=== PATIENT | female | born 1935 | race Caucasian/White ===

== ENCOUNTER 2018-05-27 11:11 | Emergency (ER) | payer MEDICARE, OTHER ==
[~2018-05-27] VITALS: Ht 160 cm; Wt 73.9 kg
[~2018-05-27 11:11] MED LIST: ACETAMINOPHEN500 M1 PO; ALLEGRA60 MG PO; DESOXIMETASONE15 G2 TOP; ESTRADIOL1 MG PO; FUROSEMIDE20 MG PO; LEVOTHYROXINE112 MCG PO; NORCO 5-325 TA1 EACH PO; PRECOSE25 MG PO; SIMVASTATIN10 MG PO
== END 2018-05-27 13:28 | disposition home or self-care (01) ==
LOC: ED 11:11
PROC: 0YQHXZZ Repair Right Lower Leg, External Approach (ICD-10-PCS; principal; 2018-05-27)
DX: S81.811A Laceration without foreign body, right lower leg, initial encounter (principal); J45.909 Unspecified asthma, uncomplicated; G62.9 Polyneuropathy, unspecified; Z79.01 Long term (current) use of anticoagulants; Z88.6 Allergy status to analgesic agent; Z88.8 Allergy status to other drugs, medicaments and biological substances; Z79.899 Other long term (current) drug therapy; R20.3 Hyperesthesia; W22.8XXA Striking against or struck by other objects, initial encounter
CPT/HCPCS: 96374; 99283-25; J3010

== ENCOUNTER 2018-07-18 07:42 | Observation (INO) | payer MEDICARE, OTHER ==
[~2018-07-18] VITALS: Ht 160 cm; Wt 75.7 kg
--- NOTE | 2018-07-18 13:57 | EKG ---
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 rate has increased BY [address] now depressed in Anterior leads T wave inversion now evident in Inferior leads T wave inversion more evident in Lateral leads Confirmed by IWONA PARTIDA MD ([id number]) on 07/18/2018 1:57:21 PM Electronically Signed By: IWONA PARTIDA MD 07/18/18 1357 PATIENT NAME: KERRY LIU Electrocardiogram DATE OF : 37 PHYSICIAN: IWONA PARTIDA MD REPORT #: [id number] REPORT IS CONFIDENTIAL AND NOT TO BE RELEASED WITHOUT AUTHORIZATION
--- NOTE | 2018-07-18 14:03 | NUR ---
PT GOT TO UNIT AT APROXIMATLY 1305 FROM ER. PT ABLE TO TRANSFER WITH STANDBY ASSIST TO BEDSIDE COMMODE. PT HAD SMALL BM AND WAS ABLE TO VOID. PT TRANSFERED TO THE BED WITH STANDBY ASSIST. PT DENIES PAIN, NAUSEA, AND SOB AT THIS TIME. PT ALERT AND ORIENTED X4 AT THIS TIME, COOPERATIVE AND POLITE. PT ABLE TO EAT ONE HALF OF SANDWICH FOR LUNCH AND FLOR PO FLUIDS WELL. SPOUSE AT THE BEDSIDE. IV SITE INTACT, NO REDNESS OR SWELLING, PT REPORTS SLIGHT STINGING WITH FLUSH, NO INFILTRATION NOTED.
[2018-07-18] MEDS ORDERED: ACID REDUCER150 MG PO (14:08)
[2018-07-18] MEDS ORDERED: MIRALAX17 GM PO (14:09)
[2018-07-18] MEDS ORDERED: ALLEGRA ALLERGY60 MG PO (14:09)
[2018-07-18] MEDS ORDERED: TYLENOL EXTRA500 MG PO (14:10)
--- NOTE | 2018-07-18 14:12 | NUR ---
Medications reconciled using pharmacy records and patient list/interview
--- NOTE | 2018-07-18 15:05 | NUR ---
CHECKED IN WITH PATIENT TO PERFORM ORTHOSTATICS. WHEN TAKING PRESSURES A LAYING FLAT WAS TAKEN AND BLOOD PRESSURE WAS 135/52. I THEN HAD THE PATIENT SIT UP IN BED AND WAIT 1 MINUTE BEFORE BLOOD PRESSURE WAS TAKEN AGAIN, AT THAT TIME BLOOD PRESSURE WAS 130/97. I THEN HAD THE PATIENT STAND AND HER BLOOD PRESSURE AT 1 MINUTE WAS 116/57 AND 115/56. BEFORE THE PATIENT HAD BEEN STANDING FOR A FULL MINUTE PATIENT STARTED TO COMPLAIN OF DIZZYNESS. PATIENT WAS OFFERED TO SIT DOWN BUT SHE DECIDED TO KEEP STANDING AND CHOSE TO HOLD ON TO THE RAIL. PATIENT DID NOT APPEAR TO HAVE ANY SIGNS OF WEAKNESS. SHE WAS ABLE TO REMAIN STANDING UPRIGHT WITH NO SWAYING. PATIENT HAD NO QUESTIONS AFTER EVERYTHING WAS COMPLETED.
--- NOTE | 2018-07-18 17:08 | NUR ---
CHECKED IN WITH PATIENT FOR 1600 EVALUATION. PATIENT WAS LAYING DOWN IN THE DARK AND APPEARS TO BE COMFORTABLE. PATIENT STATED THAT FOR THE FIRST TIME IN YEARS SHE DOES NOT HAVE A HEADACHE. PATIENT HAS NO COMPLAINTS OF PAIN. DURING EXAM PATIENT WAS POSITIVE. PATIENT HAD NO OTHER COMPLAINTS AT THIS TIME.
--- NOTE | 2018-07-18 20:10 | NUR ---
SHIFT REPORT WAS RECEIVED FROM CARLOS FALLON AND SN NELIA. PT IS CURRENTLY SITTING UP IN BED. ALERT/ORIENTED, DENIES PAIN. LUNGS CLEAR, RA. HR REGULAR, NETTA WITH RATE 55-59. BOWEL TONES ACTIVE, DENIES NAUSEA, PT REQUESTS TO HAVE MIRALAX IN THE MORNING PER HOME ROUTINE, VERIFIED WITH DR. PARTIDA AND ORDERED. SKIN APPEARS GROSSLY INTACT, SOME SCARRING/DISCOLORATION NOTED TO LOWER LEGS, NO EDEMA NOTED. IV PATENT, INFUSING WNL. RECEIVED CALL FROM DR. PARTIDA THAT RATE WAS INCREASED AND WILL ADMINISTER 2 MORE BAGS OF FLUID FOR +ORTHOSTATIC VS. PRINTED MATERIAL PROVIDED TO PT ABOUT A.FIB AND ELIQUIS. PT DENIES REQUESTS AT THIS TIME, CALL LIGHT IS WITHIN REACH.
--- NOTE | 2018-07-18 21:02 | NUR ---
PT UP TO BSC WITH SBA, VOIDED 250ML AND HAD SMALL SOFT BM. PT RETURNED TO BED. DENIES ANY DIZZINESS. NO FURTHER REQUESTS AT THIS TIME, CALL LIGHT WITHIN REACH.
--- NOTE | 2018-07-18 23:56 | NUR ---
ASSESSMENT COMPLETED. PT REPORTS 9/10 HEADACHE AND NECK PAIN. 650MG PO TYLENOL ADMINISTERED AND HEAT PACK PROVIDED. PT ALSO REPORTS INTERMITTENT TINGLING IN HER RIGHT HAND AND FINGERS, SHE STATES THIS HAPPENS IN THE NIGHTS AT TIMES AND USUALLY GOES AWAY WHEN SHE MOVES HER FINGERS/HANDS. PT HAS NOT YET BEEN ABLE TO SLEEP TONIGHT. IV REMAINS INTACT, INFUSING WNL. NO OTHER CHANGES FROM PREVIOUS ASSESSMENT. CALL LIGHT WITHIN REACH.
--- NOTE | 2018-07-19 02:36 | NUR ---
PT APPEARS TO BE SLEEPING AT THIS TIME. RESPIRATIONS ARE EVEN AND UNLABORED, RR:16, SPO2:96% ON RA, HR:51. WILL ALLOW FOR REST AND CONTINUE TO MONITOR.
--- NOTE | 2018-07-19 04:00 | NUR ---
PT CONTINUES TO SLEEP. DOES NOT APPEAR TO BE IN ANY DISTRESS. RESPIRATIONS EVEN AND UNLABORED, RR:17, SPO2:96% ON RA. REMAINS SINUS NETTA WITH HR:51. IVF INFUSING WNL. WILL ALLOW FOR REST AND CONTINUE TO MONITOR.
--- NOTE | 2018-07-19 06:20 | NUR ---
PT UP TO BSC WITH OTHER RN WHILE THIS RN WAS OFF THE FLOOR. BP NOT OBTAINED WHILE PT WAS LYING DOWN, BUT WHILE SITTING BP: 126/84 AND AFTER STANDING FOR 3 MINUTES BP: 129/74. PT DENIES ANY DIZZINESS AND APPEARS STEADY ON FEET. VOIDED 450ML. PT NOW STANDING AT SINK TO BRUSH TEETH AND WASH FACE WHILE THIS RN REMAINS IN ROOM. IV SITE INTACT, IVF INFUSING WNL.
--- NOTE | 2018-07-19 06:30 | NUR ---
PT MEDICATED WITH 650MG PO TYLENOL FOR 7/10 NECK AND HEADACHE PAIN.
--- NOTE | 2018-07-19 06:48 | NUR ---
PT BACK IN BED AT THIS TIME, COFFEE PROVIDED AND BREAKFAST ORDERED.
--- NOTE | 2018-07-19 07:30 | NUR ---
PT SHIFT REPORT RECEIVED FROM COMPOUND FILLER RN. PT RESTING IN BED AT THIS TIME. PT CALLS APPROPRIATELY. WILL CONTINUE TO CLOSELY MONITOR.
--- NOTE | 2018-07-19 08:15 | NUR ---
AURICULAR DETOXIFICATION SPECIALIST IN TO COMPLETE ECHO THIS AM.
--- NOTE | 2018-07-19 08:45 | NUR ---
PT UP TO THE BATHROOM WITH THIS RN. PT DENIES DIZZINESS. PT TOLERATED WELL. AM CARES COMPLETED. PT APPLYING MAKEUP AT THIS TIME. PT BACK TO BED WITH NO ISSUES. BREAKFAST FINISHED. ASSESSMENT COMPLETED. BREATH SOUNDS CLEAR. BOWEL TONES ACTIVE. PT DENIES DIZZINESS AND SOB. WILL CONTINUE TO CLOSELY MONITOR.
--- NOTE | 2018-07-19 09:10 | NUR ---
ORTHOSTATIC VITALS COMPLETED. PT HAD DIZZINESS INITIALLY WITH GETTING UP RIGHT AWAY. PT SAT AND DANGLED HER LEGS FOR A FEW MINUTES AND THEN DENIED DIZZINESS AFTER STANDING. VITALS DOCUMENTED. NO OTHER ISSUES AT THIS TIME. PT BACK TO BED WITH CALL LIGHT IN HAND. WILL CONTINUE TO CLOSELY MONITOR.
--- NOTE | 2018-07-19 09:41 | NUR ---
PT UP AND WALKED THE UNIT X2 WITH THIS RN. PT DENIES DIZZINESS, BUT STATES "I JUST FEEL A BIT OFF, BUT WAY BETTER THAN YESTERDAY, I COULD HAVE NEVER DONE THIS YESTERDAY". PT BACK TO BED VITALS COMPLETED. PT IN TO BATHROOM WITH NO ISSUES. WILL CONTINUE TO CLOSELY MONITOR.
[2018-07-19] MEDS ORDERED: ELIQUIS5 MG PO (09:59)
[2018-07-19] MEDS ORDERED: METOPROLOL SUCC25 MG PO (10:00)
--- NOTE | 2018-07-19 10:30 | NUR ---
PT WILL BE DISCHARGED PER DR SANTOYO. PT IS AGREEABLE TO PLAN. WILL CALL PHARMACY AND HAVE THEM COME DO EDUCATION. [facility]OUND CALLED AND WILL BE AVAILABLE AROUND 1130. WILL CONTINUE TO CLOSELY MONITOR.
--- NOTE | 2018-07-19 11:18 | NUR ---
PT GETTING ULTRASOUND AT THIS TIME. PTS STATED "I WILL BE THERE AROUND NOON". PT DENIES ANY OTHER NEEDS AT THIS TIME. WILL CONTINUE TO CLOSELY MONITOR.
--- NOTE | 2018-07-19 11:45 | NUR ---
PT DISCHARGE INSTRUCTIONS GIVEN AND PLACED IN PACKET TO TAKE HOME. PT EDUCATED TO FOLLOW-UP WITH HER MD ON THURSDAY AND TO CALL OR RETURN TO THE ED IF WORSENING OF SYMPTOMS. PRESCRIPTIONS SENT TO [facility]. MEDICATIONS REVIEWED WITH THIS RN AND PHARMACIST. ALL BELONGINGS GATHERED. PT HAS HER CELLPHONE AND GLASSES IN HER POCKET. AWAITING PATIENTS TO GET HERE FOR A RIDE HOME.
--- NOTE | 2018-07-19 12:20 | NUR ---
PT BROUGHT TO FRONT AND ASSISTED INTO HER CAR VIA WHEELCHAIR. PT TOLERATED WELL. ALL EDUCATIONS AND DISCHARGE INSTRUCTIONS AND BELONINGS GIVEN TO PATIENTS . IV DCD PRIOR TO DISCHARGE. PT DENIES FURTHER NEEDS OR QUESTIONS AT THIS TIME.
--- NOTE | 2018-07-20 19:57 | EKG ---
[facility] [address] [place] [address] Signed Sinus rhythm Incomplete right bundle branch block Minimal voltage criteria for LVH, may be normal variant Septal infarct (cited on or before 29-SEP-2016) Abnormal ECG When compared with ECG of 18-JUL-2018 07:48, (Unconfirmed) Sinus rhythm has replaced Atrial fibrillation Vent. rate has decreased BY 62 BPM T wave inversion no longer evident in Inferior leads Confirmed by IWONA PARTIDA MD ([id number]) on 07/20/2018 7:57:39 PM Electronically Signed By: IWONA PARTIDA MD 07/20/181956 PATIENT NAME: KERRY LIU Electrocardiogram DATE OF : 37 PHYSICIAN: IWONA PARTIDA MD REPORT #: [id number] REPORT IS CONFIDENTIAL AND NOT TO BE RELEASED WITHOUT AUTHORIZATION
== END 2018-07-19 12:20 | disposition home or self-care (01) ==
LOC: ED 07:42 → CCU 07:44
PROVIDERS: ADMIT Internal Medicine
DX: I48.0 Paroxysmal atrial fibrillation (principal); I47.1 Supraventricular tachycardia; G62.9 Polyneuropathy, unspecified; E78.5 Hyperlipidemia, unspecified; I87.8 Other specified disorders of veins; E03.9 Hypothyroidism, unspecified; I95.1 Orthostatic hypotension; G83.21 Monoplegia of upper limb affecting right dominant side; Z79.890 Hormone replacement therapy; Z79.899 Other long term (current) drug therapy; Z88.8 Allergy status to other drugs, medicaments and biological substances; Z91.040 Latex allergy status
CPT/HCPCS: 70450; 71046; 80053; 80061; 81001; 83735; 83880; 84443; 84484; 85025; 93005; 93010; 93306; 93880; 96361; 96374; 99291; G0378; J7120

== ENCOUNTER 2018-08-03 09:14 | Emergency (ER) | payer MEDICARE, OTHER ==
[~2018-08-03] VITALS: Ht 160 cm; Wt 75.8 kg
[~2018-08-03 09:14] MED LIST changes: +ACID REDUCER150 MG PO; +ALLEGRA ALLERGY60 MG PO; +ELIQUIS5 MG PO; +METOPROLOL SUCC25 MG PO; +MIRALAX17 GM PO; +TYLENOL EXTRA500 MG PO
--- OUTSIDE RECORDS SUMMARY | 2018-08-03 09:16 | XMS ---
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 Thuan VISIT COUNT (12 MO.) 3 ZINA Garcia TOTAL 3 NOTE: Visits indicate total known visits. ED/UCC VISIT TRACKING (12 MO.) 08/03/2018 09:14 [facility] [place] TYPE: Emergency COMPLAINT: - WEAKNESS 07/18/2018 07:43 [facility] [place] TYPE: Emergency COMPLAINT: - CHEST PAIN/SOB 05/27/2018 11:11 [facility] [place] TYPE: Emergency COMPLAINT: - LEG LAC DIAGNOSES: - Polyneuropathy, unspecified - Hyperesthesia - Allergy status to other drugs, medicaments and biological substances status - Striking against or struck by other objects, initial encounter - Other nursing home (current) drug therapy - Unspecified asthma, uncomplicated - jail (current) use of anticoagulants - Laceration without foreign body, right lower leg, initial encounter - Allergy status to analgesic agent status INPATIENT VISIT TRACKING (12 MO.) 07/18/2018 07:44 [facility] [place] TYPE: Critical Care COMPLAINT: - A-FIB DIAGNOSES: - Latex allergy status - Polyneuropathy, unspecified - 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
--- NOTE | 2018-08-03 13:40 | EKG ---
[facility] [address] [place] [address] Signed Sinus bradycardia with premature atrial complexes Incomplete right bundle branch block Septal infarct (cited on or before 29-SEP-2016) Abnormal ECG When compared with ECG of 18-JUL-2018 08:16, premature atrial complexes are now present Confirmed by GUME STRANGE MD ([id number]) on 08/03/2018 1:39:58 PM Electronically Signed By: GUME STRANGE MD 08/03/18 1340 PATIENT NAME: KERRY LIU SUZANNE Electrocardiogram DATE OF : 37 PHYSICIAN: GUME STRANGE MD REPORT #: [id number] REPORT IS CONFIDENTIAL AND NOT TO BE RELEASED WITHOUT AUTHORIZATION
== END 2018-08-03 11:00 | disposition home or self-care (01) ==
LOC: ED 09:14
DX: R55 Syncope and collapse (principal); R00.1 Bradycardia, unspecified; G62.9 Polyneuropathy, unspecified; E78.00 Pure hypercholesterolemia, unspecified; Z90.710 Acquired absence of both cervix and uterus; Z88.6 Allergy status to analgesic agent; Z88.8 Allergy status to other drugs, medicaments and biological substances; Z91.040 Latex allergy status; Z79.899 Other long term (current) drug therapy
CPT/HCPCS: 71045; 80053; 84484; 85025; 93005; 93010; 99284-25

== ENCOUNTER 2019-02-09 18:39 | Inpatient (IN) | payer MEDICARE, OTHER ==
[~2019-02-09] VITALS: Ht 160 cm; Wt 77.1 kg
[~2019-02-09 18:39] MED LIST changes: +ALLEGRA ALLERG180 MG PO; -ALLEGRA ALLERGY60 MG PO; +ASPIR-LOW81 MG PO; +ATORVASTATIN CA20 MG PO; +DILTIAZEM HCL60 MG PO; +LEVOTHYROXINE125 MCG PO; +PACERONE400 MG PO; +POTASSIUM CHLO10 ME1 PO; +WARFARIN SODIUM5 MG PO
--- NOTE | 2019-02-09 21:55 | NUR ---
PT ARRIVED IN CCU AT 2116. BP SO FAR WDL, HR IN THE 40'S. OTHER V/S ARE WDL WELL. BILATERAL ANKLE/FOOT EDEMA +1 NOTED, PT HAS NEUROPHATHY IN BOTH FEET WELL. PEDIS PULSES +1, RADIAL PULSES +2, PT IS AAOX4, PT DID WELL UP TO BEDSIDE COMMODE NOT COMPLAINING OF DIZZINESS. LOBES ARE CLEAR. WILL CONTINUE TO MONITOR.
--- NOTE | 2019-02-09 22:56 | NUR ---
BNP IS 189. MD JEFFERS WAS CALLED AND PT NOW IS SALINE LOCKED. ALSO, SINCE ARRIVAL IN CCU PT HAS BEEN SINUS NETTA, NO JUNCTIONAL RHYTHM NOTED THUS FAR. HR AT THIS TIME IN THE 50'S FOR THE MOST PART.
--- NOTE | 2019-02-09 23:57 | NUR ---
PT IS SLEEPING AT THIS TIME. HR IN THE 50'S AT THIS TIME. OTHER V/S ARE WDL.
--- NOTE | 2019-02-10 01:30 | NUR ---
AT THIS TIME HR IS IN THE 50'S OVERALL. OTHER V/S ARE WDL, ALL LOBES ARE CLEAR, PT DENIES SOB, CHEST PAIN OR ANY OTHER PAIN. PT ALSO DENIES DIZZINESS. PERIPHERAL BILATERAL ANKLE/FOOT EDEMA IS UNCHANGED. NO NEW CONCERNS NOTED AT THIS TIME.
--- NOTE | 2019-02-10 03:30 | NUR ---
PT IS SLEEPING. NO NEW CONCERNS NOTED. HR UPPER 40'S AT THIS TIME. OTHER V/S WDL.
--- NOTE | 2019-02-10 05:30 | NUR ---
THIRD ASSESSMENT IS UNCHANGED FROM PREVIOUS ASSESSMENTS. HR AT THIS TIME IN THE UPPER 40'S. OTHER V/S ARE WDL. PT DENIES PAIN OF ANY KIND AT THIS TIME. NO NEW CONCERNS NOTED.
--- NOTE | 2019-02-10 07:30 | NUR ---
PATIENT SHIFT REPORT RECIEVED FROM DENTAL TECHNICIAN RN. PATIENT IS SITTING ON EDGE OF BED WITH FAMILY AT BEDSIDE. PATIENT DENIES ANY NEEDS AT THIS TIME. PATIENT IS CURRENTLY SALINE LOCKED PER REPORT. CALL LIGHT IN REACH. WILL CONTINUE TO CLOSELY MONITOR.
--- NOTE | 2019-02-10 08:30 | NUR ---
IN TO DO INITIAL CASE MANAGEMENT ASSESSMENT. PT ALERT AND ORIENTED. DENIES ANY NEEDS AT HOME
--- NOTE | 2019-02-10 08:36 | NUR ---
PATIENT RESTING IN BED. BREATH SOUNDS CLEAR. BOWEL TONES ACTIVE. PATIENT STATES "CAN I GO HOME THIS MORNING". EDUCATED PATIENT MD WOULD BE IN THIS MORNING/AFTERNOON AND WE CAN DISCUSS THIS AT THAT TIME. NO CURENT ORRDERES FOR DISCHARGE. PATIENT STATES "I FEEL WAY BETTER THAN BEFORE, WHEN I WAS ABOUT TO PASS OUT". WILL CONTINUE TO CLOSELY MONITOR.
--- NOTE | 2019-02-10 10:00 | NUR ---
PATIENT IS GOING TO STAY ANOTHER NIGHT AND RESTART MEDICATIONS AND MONITOR HER THROUGHOUT THE NIGHT. PATIENT IS AGREEABLE TO PLAN OF CARE. PATIENT ASSISTED UP TO THE BATHROOM. PATIENT DENIED DIZZINESS AND TOELRATED WELL. AM CARES COMPLETED. WILL CONTINUE TO CLOSELY MONTIOR.
--- NOTE | 2019-02-10 12:27 | NUR ---
PATIENT SITING ON THE EDGE OF HER BED EATING LUNCH. MEDICATIONS ADMINISTERED. PATIENT IS AGREEABLE TO PLAN OF CARE. PATIENT HAS BEEN UP TO THE BATHROOM AND TOLERATED WELL. PATIENT CALLS APPROPRIATELY. LUNCH AT BEDSIDE. WILL CONTINIUE TO CLOSELY MONITOR.
--- NOTE | 2019-02-10 13:35 | NUR ---
DCD IV IN PATIENT IV D/T IT IRITATING PATIENT. OTHER IV SITE IN PATIENTS HAND WORKS WELL. PATIENT AT THE BEDSIDE. NO QUESTIONS AT THIS TIME. WILL CONTINUE TO CLOSELY MONITOR.
--- NOTE | 2019-02-10 14:57 | NUR ---
PT SITTING UP IN BED-ALERT AND ORIENTED. PT SEEMS TO BE DEALING APPROPRIATELY WITH RECENT DEVELOPMENTS WITH HER HEALTH. HER SEEMS TO BE STRUGGLING MORE. PT REQUESTED PRAYER, WILL FOLLOW NEEDED
--- NOTE | 2019-02-10 15:45 | NUR ---
WENT IN TO CHECK ON PATIENT D/T PATIENTS HR 48. PATIENTS HR HAS BEEN 50-60'S THIS AFTERNOON. PATIENT IS SITTING ON THE EDGE OF THE BED AND STATED, "I CAN FEEL IT, IT FEELS DIFFERENT, I DONT FEEL GOOD."PATIENTS HR THEN DROPPED TO THE 30'S. THIS RN ASSISTED PATIENT TO [place] POSITION AND CALLED FOR HELP. MD CALLED AND AT THE BEDSIDE. PATIENTS HR NOTED TO BE IN A DIFFERENT RHYTHM DURING EPISODE. PATIENT PALE AND CLAMMY. PATIENT FEELING BETTER BY THE TIME MD JEFFERS ARRIVED WITHIN A FEW MINUTES. GAVE PRN ZOFRAN FOR NAUSEA. PATIENT ALSO COMPLAINED OF A HEADACHE AFTER INCIDENT. MD JEFFERS CONSULTING WITH IP TECHNOLOGY TRANSACTIONS ATTORNEY.
--- NOTE | 2019-02-10 16:30 | NUR ---
MD JEFFERS CONSULTED WITH PAINT FACTORY WORKER AND PATIENT WILL BE TANSFERING TO [facility] FOR FURTHER CARE AND TREATMENT. PLACED PACER PADS PER JUSTIN . PATIENT IS UPDATED ON PLAN OF CARE AND IS AGREEABLE TO BEING TRANSFERED. PATIENT CALLED HER TO UPDATE.
--- NOTE | 2019-02-10 16:33 | NUR ---
BED CONFIRMATION AT [facility]. PT PLACED ON PACER PADS. [facility] CALLED FOR TRANSPORT.
[2019-02-10] MEDS ORDERED: WARFARIN SODIUM5 MG PO (17:06)
--- NOTE | 2019-02-10 17:19 | NUR ---
MED REC COMPLETE
--- NOTE | 2019-02-10 17:30 | NUR ---
EMS STAFF ARRIVED TO TRANSPORT PATIENT TO [facility]. REPORT GIVEN TO STAFF. UPDATED ON MEDICATIONS ALLERGIES, HX, AND TREATMENT SINCE ARRIVAL. PATIENT IS ALERT AND ORIENTED. ALL BELONGINGS GATHERED AND SENT WITH PATIENT. PATIENT HAS PACER PADS IN PLACE. PATIENTS HR IS 50'S AT THIS TIME. PATIENT DENIES ANY NAUSEA, LIGHTHEADEDNESS, OR PALPITATIONS. WILL CALL AND GIVE REPORT TO [facility] RN.
--- NOTE | 2019-02-10 18:26 | NUR ---
PATIENT REPORT CALLED TO HAILEY GONZALEZ AT [facility]. UPDATED ON CURRENT HOSPTIALIZATION AND EVENTS LEADING UP TO HOSPITALIZATION. PATIENTS HR UPON TRANSFER WAS 52, BP- 144/72, AND RR 18. EXTERNAL PACER PADS IN PLACE FOR TRANSFER, STAFF DID NOT HAVE TO PACE PATIENT MARIANOIEL SHE WAS HERE. PATIENT DENIES SYMPTOMS OF NAUSEA AND DIZINESS UPON TRANSFER. ALL BELONGINGS SENT WITH EMS STAFF.
--- NOTE | 2019-02-10 21:09 | EKG ---
[facility] [address] [place], [place] [address] Signed Atrial fibrillation with slow ventricular response Anterior infarct , age undetermined Abnormal ECG No previous ECGs available Confirmed by TRINH JEFFERS DO ([id number]) on 02/10/2019 9:09:25 PM Electronically Signed By: TRINH JEFFERS DO [birth year] PATIENT NAME: KERRY LIU Electrocardiogram DATE OF : 37 PHYSICIAN: TRINH JEFFERS DO REPORT #: [id number] REPORT IS CONFIDENTIAL AND NOT TO BE RELEASED WITHOUT AUTHORIZATION
== END 2019-02-10 17:30 | disposition short-term general hospital (02) | DRG 310 ==
LOC: ED 18:39 → CCU 21:10
PROVIDERS: ADMIT Student in an Organized Health Care Education/Training Program
DX: I48.0 Paroxysmal atrial fibrillation (principal); R00.1 Bradycardia, unspecified; K21.9 Gastro-esophageal reflux disease without esophagitis; E03.9 Hypothyroidism, unspecified; R91.1 Solitary pulmonary nodule; I49.8 Other specified cardiac arrhythmias; Z88.8 Allergy status to other drugs, medicaments and biological substances; Z91.040 Latex allergy status; Z79.01 Long term (current) use of anticoagulants; Z79.82 Long term (current) use of aspirin; Z79.890 Hormone replacement therapy; Z79.899 Other long term (current) drug therapy
CPT/HCPCS: 36415; 71045; 80048; 80053; 83735; 83880; 84439; 84443; 84484; 85025; 85610; 93005; 93010; 96360; 97162; 99285-25; J2405; J3475; J7030

== ENCOUNTER 2021-11-24 11:45 | Emergency (ER) | payer MEDICARE, BC ==
[~2021-11-24] VITALS: Ht 160 cm; Wt 77.1 kg
[~2021-11-24 11:45] MED LIST changes: +AMIODARONE HCL200 MG PO; +COUMADIN4 MG PO; +DILTIAZEM HCL90 MG PO; +FLUTICASONE-SA1 EAC5 INH; +METOPROLOL SUCC50 MG PO; +MONTELUKAST SOD10 MG PO; +WARFARIN SODIUM4 MG PO
--- NOTE | 2021-11-27 11:42 | EKG ---
[facility] [address] [place] [address] Signed Atrial-paced rhythm with prolonged AV conduction Minimal voltage criteria for LVH, may be normal variant ( Cain product ) Septal infarct (cited on or before 09-FEB-2019) Abnormal ECG When compared with ECG of 09-FEB-2019 19:01, Electronic atrial pacemaker has replaced Atrial fibrillation Questionable change in initial forces of Anterior leads Confirmed by IWONA PARTIDA MD ([id number]) on 11/27/2021 11:42:24 AM Electronically Signed By: IWONA PARTIDA MD 11/27/21 1142 PATIENT NAME: KERRY LIU Electrocardiogram DATE OF : 37 PHYSICIAN: IWONA PARTIDA MD REPORT #: [id number] REPORT IS CONFIDENTIAL AND NOT TO BE RELEASED WITHOUT AUTHORIZATION
== END 2021-11-24 16:13 | disposition home or self-care (01) ==
LOC: ED 11:45
DX: S00.93XA Contusion of unspecified part of head, initial encounter (principal); S90.121A Contusion of right lesser toe(s) without damage to nail, initial encounter; S90.32XA Contusion of left foot, initial encounter; W01.10XA Fall on same level from slipping, tripping and stumbling with subsequent striking against unspecified object, initial encounter; E78.00 Pure hypercholesterolemia, unspecified; Z88.8 Allergy status to other drugs, medicaments and biological substances; Z88.6 Allergy status to analgesic agent; Z88.1 Allergy status to other antibiotic agents; Z91.040 Latex allergy status; Z79.899 Other long term (current) drug therapy; Z79.01 Long term (current) use of anticoagulants
CPT/HCPCS: 36415; 70450; 72070; 73630; 80048; 81001; 84484; 85025; 85610; 93005; 93010; 99284-25